=== PATIENT | male | born 1990 | race Caucasian/White ===

== ENCOUNTER 2018-01-22 23:13 | Observation (INO) | payer OTHER, SELFPAY ==
[2018-01-22 23:22] VITALS: BP 117/73; PULSE 71; RESP 14; TEMP 36.7; O2SAT 95; BMI 26.7
--- NOTE | 2018-01-22 23:52 | ED.ABDPAIN ---
HPI - Abdominal Pain General Chief Complaint: Abdominal Pain Stated Complaint: RIGHT ABD PAIN AND FEVER Time Seen by Provider: 01/22/18 23:52 Source: patient Mode of arrival: ambulatory Limitations: no limitations History of Present Illness HPI narrative: The patient developed RLQ pain earlier today. The pain started before lunch. He has not eaten since lunch time, stating loss of appetite. He denies nausea or vomiting. Bowel movements have been normal. He has no back pain, scrotal pain, dysuria or hematuria. There is some pain in RLQ when ambulatory. He has experienced normal bowel movements today, no constipation or diarrhea. He has no chronic GI issues. He has had no recent abdominal injury. He has had no prior abdominal surgeries. he describes himself as healthy. Related Data Home Medications Medication Instructions Recorded Confirmed No Known Home Medications 01/23/18 01/23/18 Allergies Allergy/AdvReac Type Severity Reaction Status Date / Time Penicillins [PENICILLINS] Allergy Mild Verified 01/22/18 23:22 Review of Systems Constitutional Denies chills, Denies fever(s), Denies lethargy and Denies weakness ENT Ears, Nose, Mouth, and Throat: Denies change in voice and Denies sore throat Cardiovascular Denies chest pain, Denies irregular heart rhythm, Denies palpitations, Denies dyspnea and Denies dyspnea on exertion Respiratory Denies cough, Denies dyspnea and Denies dyspnea on exertion Gastrointestinal Gastrointestinal: Reports abdominal pain, Denies change in bowel habits, Denies diarrhea, Denies nausea and Denies vomiting Genitourinary Denies hematuria, Denies dysuria, Denies flank pain, Denies testicular pain, Denies urinary incontinence and Denies urinary urgency Musculoskeletal Denies back pain Integumentary/Breasts Denies pruritus, Denies erythema, Denies rash and Denies wounds Neurologic Denies weakness Endocrine Denies palpitations [facility] Medical History No active medical problems (Acute) Surgical History History of tonsillectomy (Acute) Social History household members: significant other Smoking Status: Never smoker alcohol intake: current Exam Initial Vital Signs Initial Vital Signs: Vital Signs Temperature 98.1 F 01/22/18 23:22 Pulse Rate 71 01/22/18 23:22 Respiratory Rate 14 01/22/18 23:22 Blood Pressure 117/73 01/22/18 23:22 Pulse Oximetry 95 01/22/18 23:22 Const General: cooperative and well developed Nutritional Appearance: well nourished Orientation: alert, awake and oriented x3 HENMT Mouth: oral mucosae normal and oropharynx normal Eyes Conjunctivae: conjunctivae normal Pupils: PERRL EOM: EOM intact bilaterally Neck Neck: No lymphadenopathy and No tender Chest Chest: normal inspection of the chest Resp Effort & Inspection: normal respiratory effort, able to speak in complete sentences, no respiratory distress and no use of accessory muscles Auscultation: clear to auscultation bilaterally, no rales, no rhonchi and no wheezes Cardio Rate: regular rate Rhythm: regular rhythm Heart Sounds: no click, no gallops, no murmurs and no rubs Pulses: normal peripheral pulses GI Inspection: non-distended Palpation: soft, no hepatosplenomegaly, No hernia, No mass and tender (in the RLQ with guarding and mild rebound. Negative Rovsing sign. Heel tap is minimally positive.) Auscultation: normal bowel sounds Back/Spine/Pelvis Back: No CVA tenderness Skin General: no rashes or lesions noted Neuro General: awake, oriented x3 and no focal motor deficits Extrem General: no clubbing, cyanosis or edema Psych Appearance: grossly normal and well kempt Mental Status: mental status grossly normal Course Orders Ordered: ED Orders 01/23/18 00:03 Complete Blood Count AUTO DIFF Stat Comprehensive Metabolic Panel Stat Lipase Stat 01/23/18 00:04 CT abdomen pelvis w con Stat Sodium Chloride (Normal Saline 0.9%) 1,000 mls @ 250 mls/hr IV CONT MARTINA Last Infusion: 01/23/18 02:48 Dose: 150 mls/hr Infusion: 01/23/18 02:25 Dose: 250 mls/hr Admin: 01/23/18 00:11 Dose: 250 mls/hr Sodium Chloride (Normal Saline 0.9%) 1,000 mls @ 150 mls/hr IV CONT MARTINA Last Admin: 01/23/18 03:21 Dose: Morphine Sulfate (Morphine) 2 mg IV Q4HR PRN PRN Reason: Pain, Moderate (4-6) Discontinued Medications Cefotetan Disodium/Dextrose (Cefotan) 2 gm in 50 mls @ 100 mls/hr IV NOW ONE Stop: 01/23/18 01:52 Last Infusion: 01/23/18 02:24 Dose: 0 mls/hr Admin: 01/23/18 01:46 Dose: 100 mls/hr Ketorolac Tromethamine (Toradol) 30 mg IV NOW ONE Stop: 01/23/18 00:04 Last Admin: 01/23/18 00:11 Dose: Not Given Ketorolac Tromethamine (Toradol) 30 mg IV NOW ONE Stop: 01/23/18 01:24 Last Admin: 01/23/18 01:26 Dose: 30 mg Vital Signs - 8 hr 01/22/18 23:22 01/23/18 01:32 01/23/18 02:55 Temperature 98.1 F 98.7 F 98.1 F Pulse Rate 71 71 70 Respiratory Rate 14 18 18 Blood Pressure 117/73 116/57 L Blood Pressure [Left Arm] 113/63 Pulse Oximetry 95 97 95 MDM - Abdominal Pain Lab Data Attestation: I reviewed the patient's lab results. Result diagrams: 01/22/18 23:50 01/22/18 23:50 Lab Results 01/22/18 01/22/18 Range/Units 23:50 23:50 WBC 15.8 H (4.5-11.0) X10^3/uL RBC 4.76 (4.5-5.9) X10^6/uL Hgb 14.9 (13.5-17.5) g/dL Hct 43.0 (41-53) % MCV 90.4 (80-100) fL MCH 31.3 (26-34) PG MCHC 34.7 (30-36) % RDW 12.5 (11.6-14.8) % Plt Count 263 (150-400) X10^3/uL Neut % (Auto) 80.3 H (50-75) % Lymph % (Auto) 10.1 L (25-40) % [place] % (Auto) 8.6 (3-14) % Eos % (Auto) 0.7 L (2-4) % Baso % (Auto) 0.3 (0-2) % Neut # (Auto) 28245 H (1292-3500) /uL Sodium 141 (137-145) mmol/L Potassium 3.8 (3.4-5.1) mmol/L Chloride 103 (98-107) mmol/L Carbon Dioxide 26 (22-32) mmol/L BUN 14 (9-20) mg/dL Creatinine 0.90 (0.66-1.25) mg/dL Estimated GFR > 60.0 (>60) mL/min BUN/Creatinine Ratio 15.6 (6-22) Glucose 100 (70-100) mg/dL Calcium 9.8 (8.4-10.2) mg/dL Total Bilirubin 0.7 (0.2-1.3) mg/dL AST 34 (17-59) IU/L ALT 42 (21-72) IU/L Alkaline Phosphatase 57 (38-126) U/L Total Protein 7.7 (6.3-8.2) g/dL Albumin 4.8 (3.5-5.0) g/dL Globulin 2.9 (1.7-4.1) g/dL Albumin/Globulin Ratio 1.7 (1.0-2.8) Lipase 32 (23-300) U/L Point of care testing: Urine Dip Bedside Urine Glucose Negative Bedside Urine Bilirubin - Negative Bedside Urine Ketone - Negative Urine Specific [place] 1.015 Bedside Urine Occult Blood - Negative Bedside Urine pH 7.5 Bedside Urine Protein - Negative Bedside Urine Urobilinogen - Negative Bedside Urine Nitrite - Negative Bedside Urine Leukocytes - Negative Esterase Imaging Data CT scan - abdomen: Radiologist's impression: Findings consistent with acute appendicitis. [facility] Narrative Medical decision making narrative: I discussed the patient's history, exam, lab and CT findings with the on-call surgeon, Dr. Cantrell. Cefotetan has been ordered. The patient will be admitted to Dr. Cantrell for surgery later this morning. Discharge Plan Departure Patient Disposition: Admitted As Inpatient Clinical Impression: Acute appendicitis Discharge Date/Time: 01/23/18 02:40 Interventions: ED Discharge Assessment Last Done: 01/23/18 02:49 Admit Date/Time: 01/23/18 01:32 Admit Provider: Hamilton Cantrell
[2018-01-23] VITALS (18 sets, daily range): BP systolic 100–123; BP diastolic 48–85; PULSE 62–106; RESP 12–20; TEMP 36.2–37.1; O2SAT 6–99; BMI 26.9; BMI 27.4
--- NOTE | 2018-01-23 | PATH_ITS ---
[facility] Accession Number: [id number] . 01 Material submitted: . APPENDIX . 02 Diagnosis: Appendix: Acute appendicitis. MRV/01/26/2018 . 02 Electronically signed: . Adriel Bull MD, Pathologist NPI- [id number] . 01 Gross description: . Received in formalin, labeled appendix, is an intact appendix (length-7.8 cm, diameter-0.8 cm) with nash-pink smooth and shiny serosa and attached mesoappendix (up to 2.0 cm in depth). The resection margin is received stapled. The lumen contains pale whatley solid soft material. The wall is up to 0.3 cm thick. No nodules, masses or lesions are identified. The resection margin is inked black. Section code: (A1) resection margin en face and four additional serial sections; (A2) one-half of the bivalved tip. ([id number]) /[facility] . 02 Pathologist provided ICD-10: K35.80 . 02 CPT . 553782 Performed at: 01 [facility] [address] [facility], [place], [place] [id number] MD Lenny Marcus MD Phone: [phone] Performed at: 02 [facility] [id number] [place], [place] [id number] MD Gloria Mallory MD Phone: [phone]
--- NOTE | 2018-01-23 00:04 | DI.CT.S_ITS ---
PROCEDURE: CT ABDOMEN PELVIS W CON INDICATIONS: Right lower quadrant pain TECHNIQUE: After the administration of intravenous contrast, 5 mm thick sections acquired from the diaphragm to the symphysis. 5 mm coronal and sagittal reformats were acquired. For radiation dose reduction, the following was used: automated exposure control, adjustment of mA and/or kV according to patient size. COMPARISON: None. FINDINGS: Image quality: Excellent. ABDOMEN: Lung bases: Lung bases are clear. Heart size is normal. Solid organs: Liver is normal in size and enhancement. Gallbladder is within normal limits. Biliary system is non dilated. Pancreas enhances normally. Spleen is normal in size and enhancement. No adrenal nodules. Kidneys demonstrate normal size and enhancement, without hydronephrosis. Peritoneum and bowel: There is no evidence of bowel function. There is diffuse appendiceal wall thickening and periappendiceal fat stranding consistent with acute appendicitis. No other area of abnormal bowel wall thickening. No free fluid or free air. Nodes and vessels: No retroperitoneal or mesenteric adenopathy by size criteria. Aorta and inferior vena cava are normal in size. Miscellaneous: No ventral hernias. PELVIS: Genitourinary: Mild diffuse urinary bladder wall thickening is seen. Cystitis cannot be excluded. No gross discrete bladder wall mass. Miscellaneous: No inguinal hernias or adenopathy. Bones: No suspicious bony lesions. No vertebral body compression fractures. IMPRESSION: L. Findings consistent with acute appendicitis. No abscess collection. No free fluid of air. 2. Nonspecific mild urinary bladder wall thickening, which may represent mild cystitis suggest clinical correlation. No significant discrepancies. Dictated by: Honorio Solorio M.D. on 01/23/2018 at 9:25 Approved by: Honorio Solorio M.D. on 01/23/2018 at 9:27
[2018-01-23] MEDS: SODIUM CHLORIDE 0.9% 1,000 ML 250 ML IV (00:11)
[2018-01-23 00:12] LABS: Add Manual Diff / Slide Review NO; Basophils Percent Auto 0.3 % (0-2); Eosinophils Percent Auto 0.7 % (2-4); Hemoglobin 14.9 g/dL (13.5-17.5); Lymphocytes Percent Auto 10.1 % (25-40); Mean Corpuscular HGB Conc 34.7 % (30-36); Mean Corpuscular Hemoglobin 31.3 PG (26-34); Mean Corpuscular Volume 90.4 fL (80-100); Monocytes Percent Auto 8.6 % (3-14); Neutrophils Absolute Auto 12700 /uL (1500-7000); Neutrophils Percent Auto 80.3 % (50-75); Platelet Count 263 X10^3/uL (150-400); Red Blood Cell Count 4.76 X10^6/uL (4.5-5.9); Red Cell Distribution Width 12.5 % (11.6-14.8); White Blood Cell Count 15.8 X10^3/uL (4.5-11.0)
[2018-01-23 00:16] LABS: Alanine Aminotransferase 42 IU/L (21-72); Albumin 4.8 g/dL (3.5-5.0); Albumin Globulin Ratio 1.7 (1.0-2.8); Alkaline Phosphatase 57 U/L (38-126); Aspartate Aminotransferase 34 IU/L (17-59); BUN Creatinine Ratio 15.6 (6-22); Bilirubin Total 0.7 mg/dL (0.2-1.3); Blood Urea Nitrogen 14 mg/dL (9-20); Calcium 9.8 mg/dL (8.4-10.2); Carbon Dioxide 26 mmol/L (22-32); Chloride 103 mmol/L (98-107); Estimated Glomerular Filt Rate > 60.0 mL/min (>60); Globulin 2.9 g/dL (1.7-4.1); Glucose 100 mg/dL (70-100); HEMOLYSIS 17 (0-50); Lipase 32 U/L (23-300); Potassium 3.8 mmol/L (3.4-5.1); Sodium 141 mmol/L (137-145); Total Protein 7.7 g/dL (6.3-8.2)
[2018-01-23] MEDS: KETOROLAC 60 MG/2 ML VIAL 30 MG IV (01:26)
[2018-01-23] MEDS: CEFOTETAN 2 GM/50 ML PIGGYBACK IV (01:46)
--- NOTE | 2018-01-23 04:03 | PC.ADMIT ---
Patient admitted to room 229 per wheelchair from ER with diagnosis of early appendicitis. Patient is alert and oriented. Breath sounds are CTA with RA sat of 95%. HRR. Denies nausea. BT present; tenderness in right LQ of abdomen. Rates pain severity at rest as 1/10 and tolerable but states pain increases when standing/walking. Instructed in pain medication availability and pain scale; verbalizes understanding. Denies any urinary problems/concerns; instructed in need to monitor output and patient verbalizes understanding of need to use urinal. Is independent with mobility but instructed to call for assistance as needed; significant other present in room and states plan to assist patient but knows to call for staff if needed. Noted to have abrasions on left hand and right arm which he reports are result of his work. Fall risk score is low. Patient oriented to bed controls and call light. All questions answered at this time. [address] Admission Note: The patient,Liam Davidson,27 y/o, was given written information regarding hospital policies, unit procedures and contact persons. Patient's smoking status: Never smoker. Vital Signs - 8 hr 01/22/18 23:22 01/23/18 01:32 01/23/18 02:55 Temperature 98.1 F 98.7 F 98.1 F Pulse Rate 71 71 70 Respiratory Rate 14 18 18 Blood Pressure 117/73 116/57 L Blood Pressure [Left Arm] 113/63 Pulse Oximetry 95 97 95
[2018-01-23] MEDS: SODIUM CHLORIDE 0.9% 1,000 ML 150 ML IV (04:51)
--- NOTE | 2018-01-23 08:04 | P.HP_ITS ---
History of Present Illness Date Patient Seen: 01/23/18 Time Patient Seen: 07:59 Chief complaint: RIGHT ABD PAIN AND FEVER Narrative: 27-year-old otherwise healthy male who presented the emergency department several hours after acute onset of right-sided abdominal pain. He was in his usual state of health until approximately 1:00 p.m. yesterday afternoon when he began to experience progressively sharp unrelenting pain in the right lower abdomen. He had some associated nausea but no vomiting. Reports a normal bowel movement yesterday. Currently passing flatus. No recent diarrhea or constipation. No dysuria, hematuria, or decreased urinary output. No fever or chills. No chest pain or shortness of breath. Denies melena, hematochezia, or bright red blood per rectum. Pain is progressed to become essentially constant with no radiation to the back or elsewhere in the abdomen. Pain is exacerbated with movement of any kind. Laughing or sneezing also exacerbates his pain. Patient History Medical History No active medical problems (Acute) Surgical History History of tonsillectomy (Acute) Family & Social History Family History: Reviewed 01/23/18 by Hamilton Cantrell MD Social History: household members significant other Prior Living Arrangements House Safety & Behavioral: Feels Safe in Current Yes Environment Been Physically Hurt or No Threatened By a Person Suicidal Ideation Description None Tobacco & Substance use: Smoking Status Never smoker alcohol intake current alcohol intake frequency a few times a week Substance Use Type does not use Meds Home Medications Medication Instructions Recorded Confirmed Type No Known Home Medications 01/23/18 01/23/18 History Allergies Allergy/AdvReac Type Severity Reaction Status Date / Time Penicillins [PENICILLINS] Allergy Mild Verified 01/22/18 23:22 Review of Systems Review of Systems All systems reviewed & are unremarkable except as noted in HPI and below Exam Vital Signs (past 8 hours): - 01/23/18 01:32 01/23/18 02:55 Temperature 98.7 F 98.1 F Pulse Rate 71 70 Respiratory Rate 18 18 Blood Pressure 116/57 L Blood Pressure [Left Arm] 113/63 Pulse Oximetry 97 95 Oxygen Delivery Method Room Air Narrative Exam Narrative: Well-nourished well-developed male in no acute distress. He is lying comfortably in bed. Alert oriented x3. His significant other is at the bedside for my entire visit. Sclera nonicteric Chest clear to auscultation bilaterally with regular rate and rhythm. No murmurs , gallops, rubs. No crackles or wheezes Abdomen is soft and nondistended. He is focally tender over McBurney's point with involuntary guarding and rebound tenderness. Positive Rovsing sign. No mass. No inguinal hernias are appreciated. No hepatomegaly. Extremities show no clubbing, cyanosis, or edema Objective Labs Result Diagrams: 01/22/18 23:50 01/22/18 23:50 Labs: Laboratory Results - last 24 hr 01/22/18 01/22/18 23:50 23:50 WBC 15.8 H RBC 4.76 Hgb 14.9 Hct 43.0 MCV 90.4 MCH 31.3 MCHC 34.7 RDW 12.5 Plt Count 263 Neut % (Auto) 80.3 H Lymph % (Auto) 10.1 L [place] % (Auto) 8.6 Eos % (Auto) 0.7 L Baso % (Auto) 0.3 Neut # (Auto) 81872 H Sodium 141 Potassium 3.8 Chloride 103 Carbon Dioxide 26 BUN 14 Creatinine 0.90 Estimated GFR > 60.0 BUN/Creatinine Ratio 15.6 Glucose 100 Calcium 9.8 Total Bilirubin 0.7 AST 34 ALT 42 Alkaline Phosphatase 57 Total Protein 7.7 Albumin 4.8 Globulin 2.9 Albumin/Globulin Ratio 1.7 Lipase 32 I have personally reviewed his CT scan of the abdomen and pelvis done in the emergency department early this morning. Findings are consistent with inflamed appendix but no evidence of rupture or abscess. No free fluid or free air. No other significant abnormalities. Assessment & Plan Plan: Assessment/Plan Narrative: 27-year-old male with abdominal pain consistent with acute appendicitis. I discussed this with him and his significant other in detail. Treatment options including long-term intravenous antibiotics versus laparoscopic appendectomy were reviewed. I strongly recommend appendectomy this morning. Technical details of laparoscopic appendectomy were reviewed. Anticipated healing and recovery times were also discussed. Risks, benefits, alternatives were explained at length. Risks including but not limited to anesthesia, bleeding, infection, pain, scars, need to convert open procedure, need for drains, appendiceal stump leak, bladder injury, ureter injury, small-bowel injury, colon injury, need for further major abdominal surgery, and all risks of major surgery were discussed at length. Small possibility of normal appendix was reviewed, but appendectomy would be performed in any event. All questions were answered to his satisfaction, and he voiced understanding. Consent was placed on the chart. Orders were written. We will proceed as above. Quality VTE Deep Vein Thrombosis/Pulmonary Embolism Present on Admission: No
--- NOTE | 2018-01-23 08:25 | PM.PREOP ---
Pre-operative Note Interval Note Pre-op Check: Yes History & Physical Reviewed by Physician, Yes Exam Performed and Yes History & Physical exam performed today by Physician Changes: No H&P completed within 30 days and has changed as indicated here:: Patient seen and examined this morning. History and physical examination documented and placed on the chart. Obviously there have been no changes in the last hour. Proceed with laparoscopic appendectomy today as planned.
[2018-01-23] MEDS: LACTATED RINGERS 1,000 ML 42 ML IV (08:38)
[2018-01-23] MEDS: CLINDAMYCIN 900 MG/50 ML PIGGYBACK 50 MG IV (08:50)
--- NOTE | 2018-01-23 09:08 | SUR.OPER ---
Supine on padded OR bed, head on pillow, arms secured on padded arm boards at <90 degrees abduction, legs uncrossed, safety belt at thigh, tape over blanket over lower legs.
[2018-01-23] MEDS: LIDOCAINE 1% W/EPI INJ 30 ML INJ (09:16)
[2018-01-23] MEDS: BUPIVACAINE 0.5% (PF) VIAL 30 ML INJ (09:17)
--- NOTE | 2018-01-23 09:59 | PM.OP.1 ---
Operative Date/Time/Diagnoses Date of procedure: 01/23/18 Time of procedure: 09:59 Pre-op diagnosis: Acute appendicitis Post-op diagnosis: same Procedure & Clinicians Procedure: Laparoscopic appendectomy Same procedure as scheduled: Yes Indications: 27-year-old male who presented with progressive right lower quadrant abdominal pain and leukocytosis. Examination and evaluation were consistent with appendicitis. Appendectomy was recommended. Surgeon: Hamilton Cantrell Click Yes if Unassisted: Yes Anesthesia Type: General Operative Notes Findings: 1. Acutely inflamed suppurative appendix without evidence of rupture or abscess 2. Otherwise grossly normal liver, gallbladder, colon, small bowel, stomach, and peritoneum within the limits of laparoscopic visualization Closure Type: primary Specimen(s): other (Appendix) Implants & Drains: None Estimated Blood Loss (mL): 25 Blood products transfused: none Procedure in detail: After obtaining informed consent the patient was brought to the operating room and placed supine on the table. After satisfactory induction of anesthesia a Bach catheter was inserted to decompress the urinary bladder. SCOAP time out was performed per standard protocol. Abdomen was prepped and draped in usual sterile fashion. A one-to-one mixture 1% lidocaine with 1:100,000 epinephrine and 0.5% plain Marcaine was injected in the skin and subcutaneous tissue at the superior aspect of the umbilicus for postoperative analgesia. Vertical midline incision was created with 11 scalpel blade at the superior aspect of the umbilicus for distance of approximately 2 cm. Blunt dissection revealed the rectus fascia which was divided sharply in the midline with 11 scalpel blade. Renay clamps were used to secure the edges of the fascia and elevate them into the operative field. Two individual interrupted 0 Vicryl suture were then applied superiorly and inferiorly to secure the fascia. Underlying peritoneum was identified and entered bluntly under direct visualization with Naty clamp. Blunt 12 mm Cheng trocar was inserted under direct visualization and a carbon dioxide pneumoperitoneum was created. 30 degree 5 mm laparoscope was used to explore the abdomen. Findings are as above. Under direct laparoscopic visualization to individual 5 mm trocars were placed in the left lower abdomen. Nayeli graspers were used to manipulate the cecum and the appendix. Appendix was found to be in the right pericolic gutter and acutely inflamed. There were several adhesions along the peritoneal reflection which were taken down sharply with laparoscopic scissors. Great care was taken to avoid injury to adjacent structures. Appendix was thereby mobilized and the base of the appendix was noted to be soft. [place] dissector was used to encircle the base of the appendix which was then divided with a single application of the Endo-EDGAR 45 mm stapler using a tissue load. Again, great care was taken to avoid injury to adjacent structures while applying the stapler. The mesoappendix was taken down with an Endo-EDGAR 45 mm stapler using a vascular load, but 2 applications were required to completely divide the tissue. Specimen was placed in an endo-pouch and retrieved through the umbilical incision then sent for permanent section. Staple lines were meticulously examined and a small bleeding vessel between the harsh along the mesoappendix was controlled with 10 mm hemoclips. Area was irrigated with copious amounts of sterile saline solution and suction from the abdomen. Staple lines were again meticulously examined and noted to be hemostatic. No evidence of any leakage from the appendiceal stump. Area was again irrigated and noted to be hemostatic. Irrigant was suctioned and noted to be clear. Instruments and trocars removed under direct visualization and hemostasis verified. Carbon dioxide was evacuated. Fascia the umbilical site was closed with the previously placed 0 Vicryl suture. Skin at all 3 incisions was then closed in a subcuticular running fashion using 4 0 Monocryl suture. Dermal adhesive was applied to the skin. Bach catheter was removed and discarded. Anesthesia was reversed and the patient extubated in the operating room. He was taken recovery in stable condition. Complications: none Condition: stable Disposition: PACU Plan for aftercare: 1. Return to regular surgical floor for ongoing convalescence
--- NOTE | 2018-01-23 10:13 | SUR.PHASEI ---
stable pacu stay, report called, pt transported back to room.
--- NOTE | 2018-01-23 10:37 | SUR.PHASEI ---
Pt left in room under the care of Sue in stable condition
[2018-01-23] MEDS: ONDANSETRON 4 MG/2 ML INJ IV (10:46)
[2018-01-23] MEDS: LACTATED RINGERS 1,000 ML 100 ML IV (10:51)
[2018-01-23] MEDS: ACETAMINOPHEN 325 MG TABLET 650 MG PO (12:39)
--- NOTE | 2018-01-23 13:58 | PC.NURSE ---
Day Shift- Pt A&OX4, able to make needs known using call light, SO Jody at bedside. Dr. Cantrell present at bedside around 0730. Pt NPO since 01/22 at 2015, last solid food was 01/22 at 1400. Pt to OR via bed at 0815, pt S/L'd to right AC PIV at that time, Jody took pt's silver colored ring and personal belongings. Report rec'd from MAXIM[facility] Echeverria in PACU at 1010 on current pt status. Pt back into 229 at 1030, VSS, pt lethargic with verbal stimuli, Jody at bedside for post op care instructions also. Pt able to properly demonstrate incentive spirometer use. SCD calf placed. Abd lap sites X3 have no drainage with surgical glue intact. Pt stated feeling nauseated shortly after arrival, Zofran 4mg IV prn given at 1045 with good effect. Pt has tolerated, water, juice, coffee, ice cream and was left having gluten free pasta dish. Family members in room visiting. Pt given prn Tylenol per pt request at 1245 for 2/10 abd aching.
--- NOTE | 2018-01-23 14:54 | CM.DANOTE ---
DCP Chart Review Patient is a 27 year old male who was admitted OBS STATUS on 01/23/18 for Abd pain and fever. Pt has [employer] for insurance and his PCP is not listed. EMR was reviewed. Per Surgeon, pt to have appendectomy this morning. Per RN, pt currently off floor for surgery and had sig other bedside. Patient resides on [facility] with Sig other and has local family who have been bedside. Pt typically Independent at baseline and works. SW unable to complete bedside assessment due to pt being off floor for surgery. Plan: SW to follow closely once pt returns to the floor after surgery to determine any identified discharge planning needs. ZEE Balderas
--- NOTE | 2018-01-23 15:02 | P.PN_ITS ---
Subjective Date Patient Seen: 01/23/18 Time Patient Seen: 14:59 Interval history: Complaining of some nausea but no vomiting. Just received some Zofran prior to my visit. Tolerated some regular food for lunch. No increase in pain with oral intake. Pain currently is controlled with Tylenol but he is experiencing some incisional discomfort. He does not wish to take opioid medications if possible. He has been able to void since surgery without issue. No subjective fever or chills. Exam Vital Signs (past 8 hours): - 01/23/18 07:40 01/23/18 07:50 01/23/18 08:31 Temperature 97.2 F L 98 F Pulse Rate 73 78 Respiratory Rate 18 18 Blood Pressure 113/58 L 119/63 Pulse Oximetry 97 98 97 01/23/18 09:51 01/23/18 09:56 01/23/18 10:01 Temperature 98.1 F Pulse Rate 90 106 H 81 Respiratory Rate 16 17 15 Blood Pressure 123/85 123/85 114/66 Pulse Oximetry 99 98 96 01/23/18 10:06 01/23/18 10:11 01/23/18 10:32 Temperature 97.9 F 98.4 F Pulse Rate 79 73 79 Respiratory Rate 16 12 20 Blood Pressure 116/63 114/61 104/48 L Pulse Oximetry 96 6 L 96 01/23/18 11:00 01/23/18 11:30 01/23/18 12:30 Temperature 98.1 F 98.8 F Pulse Rate 72 81 67 Respiratory Rate 18 18 18 Blood Pressure 100/58 L 104/48 L 113/58 L Pulse Oximetry 97 97 96 01/23/18 13:30 Temperature 98.2 F Pulse Rate 73 Respiratory Rate 18 Blood Pressure 121/59 L Pulse Oximetry 96 Oxygen Delivery Method Room Air Oxygen Flow Rate 0 Narrative Exam Narrative: Well-nourished well-developed male in no acute distress. Alert oriented x3. Resting comfortably in bed. Regular rate and rhythm Abdomen soft and nondistended. He is appropriately tender to palpation around the incisions without guarding or rebound. His right lower quadrant tenderness that was present preoperatively has subsided significantly. Wounds are clean, dry, and intact without erythema, drainage, or ecchymosis. Objective Labs Result Diagrams: 01/22/18 23:50 01/22/18 23:50 Labs: Laboratory Results - last 24 hr 01/22/18 01/22/18 23:50 23:50 WBC 15.8 H RBC 4.76 Hgb 14.9 Hct 43.0 MCV 90.4 MCH 31.3 MCHC 34.7 RDW 12.5 Plt Count 263 Neut % (Auto) 80.3 H Lymph % (Auto) 10.1 L [place] % (Auto) 8.6 Eos % (Auto) 0.7 L Baso % (Auto) 0.3 Neut # (Auto) 75318 H Sodium 141 Potassium 3.8 Chloride 103 Carbon Dioxide 26 BUN 14 Creatinine 0.90 Estimated GFR > 60.0 BUN/Creatinine Ratio 15.6 Glucose 100 Calcium 9.8 Total Bilirubin 0.7 AST 34 ALT 42 Alkaline Phosphatase 57 Total Protein 7.7 Albumin 4.8 Globulin 2.9 Albumin/Globulin Ratio 1.7 Lipase 32 Assessment & Plan Plan: Assessment/Plan Narrative: 27-year-old male doing well after laparoscopic appendectomy for acute suppurative appendicitis without abscess or rupture, but he is having some nausea after his recent meal. Furthermore, his pain is not optimally controlled. I encouraged him to take the oxycodone as needed in conjunction with Tylenol if he wishes. Ambulate as much as tolerated. Encourage pulmonary toilet including incentive spirometry. Will continue to observe here in the hospital given his pain and nausea issues. Suspect he will likely be able to go home tomorrow. I discussed all the intraoperative findings with him as well as the above issues. Questions were answered to his satisfaction, and he voiced understanding. Quality VTE Deep Vein Thrombosis/Pulmonary Embolism Present on Admission: No
[2018-01-23] MEDS: SODIUM CHLORIDE 0.9% FLUSH 10 ML IV (21:38)
[2018-01-24] VITALS: O2SAT 97
[2018-01-24 00:20] VITALS: BP 111/58; PULSE 73; RESP 18; TEMP 36.5; O2SAT 97
[2018-01-24] MEDS: OXYCODONE IR 5 MG TABLET PO ×2 (00:32→07:47)
[2018-01-24] MEDS: ACETAMINOPHEN 325 MG TABLET 650 MG PO ×2 (02:44→09:55)
[2018-01-24 05:25] VITALS: BP 107/53; PULSE 72; RESP 18; TEMP 36.4; O2SAT 98
[2018-01-24 07:30] VITALS: BP 123/69; PULSE 59; RESP 16; TEMP 36.6; O2SAT 97
[2018-01-24 07:45] VITALS: O2SAT 99
[2018-01-24] MEDS: DOCUSATE 100 MG CAPSULE PO (07:47)
[2018-01-24] MEDS: SODIUM CHLORIDE 0.9% FLUSH 10 ML IV (07:48)
--- NOTE | 2018-01-24 10:36 | P.DS_ITS ---
History of Present Illness Date Patient Seen: 01/24/18 Time Patient Seen: 10:32 Chief complaint: RIGHT ABD PAIN AND FEVER Narrative: 27-year-old otherwise healthy male who presented the emergency department several hours after acute onset of right-sided abdominal pain. He was in his usual state of health until approximately 1:00 p.m. yesterday afternoon when he began to experience progressively sharp unrelenting pain in the right lower abdomen. He had some associated nausea but no vomiting. Reports a normal bowel movement yesterday. Currently passing flatus. No recent diarrhea or constipation. No dysuria, hematuria, or decreased urinary output. No fever or chills. No chest pain or shortness of breath. Denies melena, hematochezia, or bright red blood per rectum. Pain is progressed to become essentially constant with no radiation to the back or elsewhere in the abdomen. Pain is exacerbated with movement of any kind. Laughing or sneezing also exacerbates his pain. Discharge Providers Date of admission: 01/23/18 01:32 Discharge provider: Hamilton Cantrell MD Discharge Date: 01/24/18 Summary Discharge Diagnosis: 1. Acute suppurative appendicitis 2. Laparoscopic appendectomy January 23, 2018 3. History of tonsillectomy Hospital Course: Patient was taken to the operating room for the above procedure which he tolerated well. Postoperatively he was admitted to the regular surgical floor where he remained afebrile and hemodynamically stable. He had some mild postoperative nausea which was not unanticipated after anesthesia and related to his analgesics which subsequently resolved. By postoperative day 1 he is tolerating a regular diet without issue. He has had return of normal bowel bladder function. He is ambulating without difficulty. Pain is well controlled with oral analgesics. His incisions are healing nicely. His preoperative pain has completely subsided. He is having no other symptoms, chest pain, or shortness of breath. Because of his stable condition he is discharged home on postoperative day 1. He will follow up in the surgery clinic in 2 weeks. However, he has been instructed to call or return sooner should he have any issues with fever, chills, progressive abdominal pain, nausea , vomiting, inability to tolerate a diet, wound drainage, wound erythema, or lack of bowel function. All questions were answered to his satisfaction, and he voiced understanding. Status at Discharge Cognitive/behavioral status at discharge: Alert, oriented x3 Functional status at discharge: independent ambulation Overall status at discharge: patient is progressing back to baseline Time Spent with Patient Less than 30 minutes Exam Vital Signs (past 8 hours): - 01/24/18 05:25 01/24/18 07:30 Temperature 97.5 F L 97.8 F Pulse Rate 72 59 L Respiratory Rate 18 16 Blood Pressure 107/53 L 123/69 Pulse Oximetry 98 97 Oxygen Delivery Method Room Air Oxygen Flow Rate 0 Narrative Exam Narrative: Well-nourished well-developed male in no acute distress. Alert oriented x3. Significant other is at the bedside during my entire visit. Maximum temperature 97.8?. No tachycardia. Blood pressure is normal. He has excellent urine output spontaneously. Sclera nonicteric Chest clear to auscultation bilaterally with regular rate and rhythm. No murmurs. Abdomen soft, nondistended, minimally tender. He is appropriately tender at his incisions but without guarding or rebound. His right lower quadrant tenderness has essentially resolved. Incisions are clean, dry, and intact. No erythema or ecchymosis. No wound drainage. No hematoma or seroma. Extremities show no clubbing, cyanosis, or edema Objective Labs Result Diagrams: 01/22/18 23:50 01/22/18 23:50 Labs: No new laboratory or radiographic studies for review since the time of admission. Final pathology is still pending at discharge. Discharge Plan Discharge Plan Patient Disposition: Home Discharge Med Rec/Prescriptions Prescriptions: New sennosides [senna] 8.6 mg Tablet 8.6 mg PO BEDTIME Qty: 10 RF: 0 acetaminophen 325 mg Tablet 650 mg PO Q6HR PRN (Reason: As Needed For Fever/Mild Pain) Qty: 60 RF: 0 docusate sodium 100 mg Capsule 100 mg PO BID Qty: 20 RF: 0 oxycodone 5 mg Tablet 5 mg PO Q3HR PRN (Reason: Pain, Moderate (4-6)) Qty: 30 RF: 0 Follow up/Referrals: Hamilton Cantrell MD [Physician] - 2 Weeks (Please call office for exact appointment date and time if not already scheduled) Provider Discharge Instructions Diet: Diet as Tolerated Activity: No lifting more than 20 lb for 2 weeks May walk as much as desired May climb stairs May ride in vehicle No driving or operating machinery while taking opioid pain medication Cold/Heat Therapy: May apply ice pack to incisions as needed for comfort Other treatments: May shower Do not soak incision in bathtub or pool for 2 weeks Skin/Wound/Dressing Care Report to your healthcare provider any signs of infection, such as:: chills, fever, night sweats, increased pain, unusual drainage and unusual redness Dressing: No dressing necessary Discharge Data Attending Provider: Hamilton Cantrell Admit Date/Time: 01/23/18 01:32 Quality VTE Deep Vein Thrombosis/Pulmonary Embolism Present on Admission: No
--- NOTE | 2018-01-24 11:45 | CM.DPC ---
DCP: Continued plan: Patient with uncomplicated lap appy performed on 01/23/18, has d/c orders for home today. Home is [facility] and spouse is in room with patient when undersigned visits today. They already have priority pass for [employer] for their ride home. They are awaiting d/c instructions from nurse and any scripts. Patient states he is feeling well, ambulating and sitting up in chair. They expressed no further discharge needs from DC planning, and patient is dressed and ready to go home when cleared to do so by RN. Yuly Senior RN, Care Management
--- NOTE | 2018-01-24 12:55 | PC.NURSE ---
Addendum entered by Micah Bashir R.N. 01/24/18 14:58: Pt d/c'd to home with spouse. W/c to POV in no acute distress. Original Note: Provided d/c paperwork and rxs as well as priority pass for [facility]. DC education completed. Removed PIV with cath tip intact. Pt and spouse verbalize understanding of teaching and voice no questions at this time. They are filling the rxs at [facility] and plan to leave at 1500.
== END 2018-01-24 15:00 | disposition home or self-care (01) ==
LOC: ED 23:21 → AC 01-23 01:36
PROVIDERS: Admitting Provider Surgery; Emergency Provider Emergency Medicine; Visit Provider Surgery
PROC: 0DTJ4ZZ Resection of Appendix, Percutaneous Endoscopic Approach (ICD-10-PCS; CPT 44970; principal; 2018-01-23 08:25)
DX: K35.80 Unspecified acute appendicitis (principal); R10.31 Right lower quadrant pain
CPT/HCPCS: 44970; 36591; 74177; 80053; 81003; 83690; 85025; 96361; 96365; 96375; 99282; 99285; G0378; J1100; J1885; J2250; J2405; J2704; J3010; Q9967